=== PATIENT | female | born 1985 | race Two or more races ===

== ENCOUNTER → 2018-01-29 | Emergency (ER) | payer OTHER ==
[~2018-01-29] VITALS: Ht 170.2 cm; Wt 59.0 kg
[~2018-01-29] MED LIST: AIRBORNE EFFER1 EACH PO; FLONASE ALLERG9.9 ML NASAL
== END | disposition home or self-care (01) ==
LOC: ER 22:41
DX: J06.9 Acute upper respiratory infection, unspecified (principal); J32.8 Other chronic sinusitis

== ENCOUNTER 2019-07-17 15:46 | Emergency (ER) | payer OTHER ==
[~2019-07-17] VITALS: Ht 170.2 cm; Wt 63.0 kg
== END 2019-07-17 20:45 | disposition home or self-care (01) ==
LOC: ER 15:46
DX: A08.4 Viral intestinal infection, unspecified (principal)

== ENCOUNTER 2021-01-20 18:17 | Emergency (ER) | payer OTHER ==
[~2021-01-20] VITALS: Ht 170.2 cm; Wt 61.2 kg
[2021-01-20] MEDS ORDERED: CEPHALEXIN500 M1 PO (21:14)
[2021-01-20] MEDS ORDERED: ZYRTEC10 MG PO (21:14)
[2021-01-20] MEDS ORDERED: MUCINEX DM ER1 EAC1 PO (21:14)
[2021-01-20] MEDS ORDERED: INTESTINEX680 M2 PO (21:14)
== END 2021-01-20 21:47 | disposition home or self-care (01) ==
LOC: ER 18:17
DX: N64.4 Mastodynia (principal); J30.89 Other allergic rhinitis; Z11.52 Encounter for screening for COVID-19

== ENCOUNTER 2022-04-16 09:43 | Outpatient (CLI) | payer OTHER ==
[~2022-04-16 09:43] MED LIST changes: +CEPHALEXIN500 M1 PO; +INTESTINEX680 M2 PO; +MUCINEX DM ER1 EAC1 PO; +ZYRTEC10 MG PO
== END 2022-04-16 09:49 | disposition home or self-care (01) ==
LOC: RAD 09:43
PROVIDERS: ATTEND Surgery
DX: Z01.811 Encounter for preprocedural respiratory examination (principal); K80.20 Calculus of gallbladder without cholecystitis without obstruction

== ENCOUNTER → 2022-04-25 08:00 | Outpatient (CLI) | payer OTHER ==
[~2022-04-25] VITALS: Ht 170.2 cm; Wt 63.0 kg
== END | disposition home or self-care (01) ==
LOC: LAB 08:00 → ADM 10:45 → CIR.AMB 04-26 10:45 → EDSTATUS 04-26 10:45
PROVIDERS: ATTEND Surgery
DX: K80.20 Calculus of gallbladder without cholecystitis without obstruction (principal)

== ENCOUNTER 2022-06-15 22:43 | Emergency (ER) | payer OTHER ==
[~2022-06-15] VITALS: Ht 170.2 cm; Wt 63.5 kg
[2022-06-16] MEDS ORDERED: PEPCID40 MG PO (05:10)
[2022-06-16] MEDS ORDERED: LEVSIN/SL0.125 MG SL (05:10)
[2022-06-16] MEDS ORDERED: ONDANSETRON ODT4 MG PO (05:10)
== END 2022-06-16 05:39 | disposition home or self-care (01) ==
LOC: ER 22:43
DX: K80.20 Calculus of gallbladder without cholecystitis without obstruction (principal); R10.9 Unspecified abdominal pain; Z91.013 Allergy to seafood

== ENCOUNTER 2022-12-19 09:15 | Emergency (ER) | payer OTHER ==
[~2022-12-19] VITALS: Ht 170.2 cm; Wt 63.5 kg
[~2022-12-19 09:15] MED LIST changes: +LEVSIN/SL0.125 MG SL; +ONDANSETRON ODT4 MG PO; +PEPCID40 MG PO
[2022-12-19] MEDS ORDERED: CARAFATE1 GM PO (13:07)
[2022-12-19] MEDS ORDERED: PEPCID AC20 MG PO (13:07)
== END 2022-12-19 13:25 | disposition home or self-care (01) ==
LOC: ER 09:15
DX: K52.89 Other specified noninfective gastroenteritis and colitis (principal); Z91.013 Allergy to seafood; Z20.822 Contact with and (suspected) exposure to COVID-19

== ENCOUNTER 2023-02-14 06:05 | Day surgery (SDC) | payer OTHER ==
[~2023-02-14] VITALS: Ht 170.2 cm; Wt 63.5 kg
[~2023-02-14 06:05] MED LIST changes: +CARAFATE1 GM PO; +CATAFLAN PO; +PEPCID AC20 MG PO
== END 2023-02-14 11:40 | disposition home or self-care (01) ==
LOC: CIR.AMB 06:05
PROVIDERS: ATTEND Surgery
DX: K80.10 Calculus of gallbladder with chronic cholecystitis without obstruction (principal); Z20.822 Contact with and (suspected) exposure to COVID-19; Z91.013 Allergy to seafood

== ENCOUNTER 2023-05-11 19:13 | Emergency (ER) | payer OTHER ==
[~2023-05-11] VITALS: Ht 170.2 cm; Wt 64.4 kg
[2023-05-11] MEDS ORDERED: PEPCID AC20 MG PO (21:21)
[2023-05-11] MEDS ORDERED: LEVSIN/SL0.125 MG SL (21:21)
== END 2023-05-11 21:27 | disposition home or self-care (01) ==
LOC: ER 19:14
PROVIDERS: General Practice
DX: B34.9 Viral infection, unspecified (principal); R19.7 Diarrhea, unspecified; R10.9 Unspecified abdominal pain; Z20.822 Contact with and (suspected) exposure to COVID-19; Z91.013 Allergy to seafood

== ENCOUNTER 2024-03-12 22:54 | Emergency (ER) | payer OTHER ==
[~2024-03-12] VITALS: Ht 170.2 cm; Wt 66.7 kg
[2024-03-13] MEDS ORDERED: KETOROLAC TROMETHAMINE 10 MG TABLET PO STA (02:38)
[2024-03-13] MEDS ORDERED: ALBUTEROL SULFATE 3 ML/2.5 MG AMPUL.NEB IH SCH (02:45)
[2024-03-13 02:52] LABS: HEMATOCRIT 37.4 % (36.0-45.00); HEMOGLOBIN 12.8 g/dL (12.0-15.00); MEAN CELL VOLUME 87.9 fL (80.00-100.00); MEAN CORPUSCULAR HEMOGLOBIN 30.2 pg (27.00-32.0); MEAN CORPUSCULAR HGB CONC 34.3 g/dl (32.0-36.0); PLATELET COUNT 176 K/uL (150-450); RED BLOOD COUNT 4.25 M/uL (4.00-6.00); RED CELL DISTRIBUTION WIDTH 13.6 % (11.5-14.5)
[2024-03-13 03:47] LABS: PH,URINE 6.5 (5.0-8.0); URINE APPEARANCE Clear; URINE BILIRRUBIN Negative (NEGATIVE); URINE BLOOD Negative; URINE COLOR Yellow; URINE GLUCOSE Negative (NEGATIVE); URINE LEUKOCYTE Trace; URINE NITRATE Negative; URINE PROTEIN Negative (NEGATIVE); URINE UROBILINOGEN 0.2 E.U./dl
[2024-03-13 03:51] LABS: URINE BACTERIA 1712.1 uL (0.0-1933); URINE EPITHELIAL CELLS 21.9 uL (0.0-38.8); URINE RBC 7.3 uL (0.0-20.8); URINE WBC 14.5 uL (0.0-23.2)
[2024-03-13] MEDS ORDERED: BUDESONIDE0.5 MG/2 M IH (05:10)
[2024-03-13] MEDS ORDERED: ZITHROMAX500 MG PO (05:10)
[2024-03-13] MEDS ORDERED: ALBUTEROL2.5 MG/3 M IH (05:10)
[2024-03-13] MEDS ORDERED: ORASEP SPRAY30 ML MM ×2 (05:11→05:12)
== END 2024-03-13 05:18 ==
LOC: ER 22:55
PROVIDERS: General Practice
DX: J02.9 Acute pharyngitis, unspecified (principal); Z20.822 Contact with and (suspected) exposure to COVID-19; Z87.09 Personal history of other diseases of the respiratory system; Z91.013 Allergy to seafood

== ENCOUNTER 2024-06-21 09:22 | Emergency (ER) | payer OTHER ==
[~2024-06-21] VITALS: Ht 170.2 cm; Wt 67.1 kg
[~2024-06-21 09:22] MED LIST changes: +ALBUTEROL2.5 MG/3 M IH; +BUDESONIDE0.5 MG/2 M IH; +ORASEP SPRAY30 ML MM; +ZITHROMAX500 MG PO
[2024-06-21] MEDS ORDERED: KETOROLAC TROMETHAMINE 60 MG VIAL IM STA (10:45)
[2024-06-21] MEDS ORDERED: ORPHENADRINE CITRATE 30 MG/ML AMPUL IM STA (10:46)
== END 2024-06-21 12:30 | disposition home or self-care (01) ==
LOC: ER 09:24
DX: M62.838 Other muscle spasm (principal); Z91.013 Allergy to seafood

== ENCOUNTER 2025-05-15 14:00 | Emergency (ER) | payer OTHER ==
[~2025-05-15] VITALS: Ht 170.2 cm; Wt 68.0 kg
[2025-05-15] MEDS ORDERED: FAMOTIDINE/PF 20 MG/2 ML VIAL ONE (16:32)
[2025-05-15] MEDS ORDERED: ONDANSETRON HCL 2 MG/ML VIAL ONE (16:32)
[2025-05-15] MEDS ORDERED: FAMOtidine 10 MG/ML (4ML VIAL) IV ONE (16:45)
[2025-05-15] MEDS ORDERED: 0.9 % SODIUM CHLORIDE 500 ML IV ONE (16:45)
[2025-05-15] MEDS ORDERED: ONDANSETRON HCL 2 MG/ML VIAL IV ONE (16:45)
[2025-05-15 17:07] LABS: BASO % 0.7 % (0.1-1.2); EOS # 0.17 (0.04-0.54); EOS % 3.9 % (0.7-7.0); LYMPH # 1.56 (1.18-3.74); LYMPH % 35.5 % (19.3-53.1); MEAN PLATELET VOLUME 11.80 fl (9.4-12.4); MONO # 0.25 (0.24-0.82); MONO % 5.7 % (4.7-12.5); NEUT # 2.38 (1.56-6.13); NEUT % 54.0 % (34.0-71.1); RED CELL DISTRIBUTION WIDTH 12.8 % (11.6-14.4)
[2025-05-15 17:27] LABS: INR 1.1
[2025-05-15 17:41] LABS: ALT/SGPT 15 U/L (12-78); AST/SGOT 16 U/L (15-37); BILIRUBIN TOTAL 0.34 mg/dL (0.3-1.2); BUN CREA RATIO 14 (7.0-25.0); CREATININE SERUM 1.05 mg/dL (0.55-1.02); GFR 58.05; GLOBULINA 3.4 G/DL (2.4-3.5); GLUCOSE FASTING 93 mg/dL (65-100); OSMOLALITY SERUM 284 MOSM/KG (275-295)
[2025-05-15 17:49] LABS: HCG QUANTITATIVE < 1 mUI/mL (1-3)
[2025-05-15 17:58] LABS: COVID-19 AG NEGATIVE (NEGATIVE)
[2025-05-15 18:09] LABS: URINE APPEARANCE Clear; URINE BILIRRUBIN Negative (NEGATIVE); URINE BLOOD Negative; URINE COLOR Yellow; URINE GLUCOSE Negative (NEGATIVE); URINE KETONE Negative (NEGATIVE); URINE LEUKOCYTE Negative; URINE NITRATE Negative; URINE PROTEIN Negative (NEGATIVE); URINE UROBILINOGEN 1.0 E.U./dl
[2025-05-15 18:13] LABS: URINE BACTERIA 830.2 uL (0.0-1933); URINE EPITHELIAL CELLS 14.1 uL (0.0-38.8); URINE RBC 4.8 uL (0.0-20.8); URINE WBC 2.7 uL (0.0-23.2)
[2025-05-15 18:28] LABS: URINE CAST 0.00 uL (0.0-1.40)
[2025-05-15] MEDS ORDERED: PEPCID AC20 MG PO (20:07)
[2025-05-15] MEDS ORDERED: PROBIOTIC1 EAC2 PO (20:07)
[2025-05-15] MEDS ORDERED: LEVSIN/SL0.125 MG SL (20:07)
== END 2025-05-15 20:44 | disposition home or self-care (01) ==
LOC: ER 14:02
PROVIDERS: General Practice
DX: R19.7 Diarrhea, unspecified (principal); Z20.822 Contact with and (suspected) exposure to COVID-19; Z91.013 Allergy to seafood